=== PATIENT | male | born 1990 | race Two or more races ===

== ENCOUNTER 2024-12-15 07:50 | Day surgery (SDC) | payer MEDICAID, SELFPAY ==
--- NOTE | 2024-12-14 12:24 | EKG_ITS ---
[facility] Test Date: 2024-12-14 Pat Name: ANITHA LEONE Department: Room: - Gender: Male Supervisor Record Press: TAWANA : 1990 Requested By: Landry Womack Order Number: [id number] Reading MD: Landry Womack Measurements Intervals Kelly Rate: 86 P: -1 WA: 139 QRS: 42 QRSD: 93 T: 48 QT: 353 QTc: 423 Interpretive Statements SINUS RHYTHM No previous ECG available for comparison /store/S0/[id number]/[id number]
[2024-12-14 12:29] VITALS: BMI 36.1
[2024-12-14 13:21] LABS: Basophils # (Auto) 0.0 Thou/mm3 (0.0-0.2); Basophils % (Auto) 1 % (0-2.5); Eosinophils # (Auto) 0.1 Thou/mm3 (0.0-0.5); Eosinophils % (Auto) 2 % (0-10); Hematocrit 45.9 % (41.0-53.0); Hemoglobin 14.3 g/dL (13.5-16.0); Immature Granulocytes Auto 0.02 Thou/mm3 (0.00-0.00); Lymphocytes # (Auto) 1.0 Thou/mm3 (1.0-4.8); Lymphocytes % (Auto) 14 % (10-50); Mean Corpuscular HGB Conc 31.2 g/dl (31.0-37.0); Mean Corpuscular Hemoglobin 23.1 pg (25.0-35.0); Mean Corpuscular Volume 74 fL (80-100); Monocytes # (Auto) 0.6 Thou/mm3 (0.0-0.8); Monocytes % (Auto) 8 % (0-12); Neutrophils # (Auto) 5.7 Thou/mm3 (1.8-7.7); Neutrophils % (Auto) 76 % (37-80); Nucleated Red Blood Cell # 0.00 Thou/mm3 (0.00-0.00); Nucleated Red Blood Cell % 0 /100 WBC (0); Platelet Count 335 Thou/mm3 (140-440); RDW Standard Deviation 37.9 fL (35.1-43.9); Red Blood Count 6.20 Miln/mm3 (4.50-5.90); White Blood Count 7.5 Thou/mm3 (3.8-10.6)
[2024-12-14 13:37] LABS: INR 1.0 (0.9-1.3); Partial Thromboplastin Time 27.0 Seconds (22.0-36.0); Prothrombin Time 11.1 Seconds (9.0-12.2)
[2024-12-14 13:47] LABS: Alanine Aminotransferase 37 U/L (10-49); Albumin, Serum 4.7 gm/dL (3.5-5.0); Albumin/Globulin Ratio 1.2 (1.2-2.2); Alkaline Phosphatase 120 U/L (46-116); Anion Gap 13 (7-16); Aspartate Amino Transferase 38 U/L (0-34); BUN/Creatinine Ratio 7 Ratio (12-20); Bilirubin,Total 1.1 mg/dL (0.3-1.2); Blood Urea Nitrogen 5 mg/dL (9-23); Calcium 9.7 mg/dL (8.3-10.6); Calcium (Corrected) 9.7 mg/dL (8.5-10.1); Carbon Dioxide 23.3 mMol/L (20.0-31.0); Chloride 100 mMol/L (98-107); Creatinine (Component) 0.7 mg/dL (0.6-1.3); Estimated Creatinine Clearance 160.5 mL/min (>60); Globulin 4.0 gm/dL (2.3-3.5); Glucose 165 mg/dL (74-106); Osmolality,Calculated 273 (275-295); Potassium 3.8 mMol/L (3.4-5.1); Sodium 136 mMol/L (136-145); Total Protein 8.7 gm/dL (5.7-8.2); eGFR > 60 See Note
--- NOTE | 2024-12-14 14:40 | SUR.PREOP ---
Pt notified to come in at 0830 tomorrow for surgery.
[2024-12-15] VITALS (7 sets, daily range): BP systolic 101–135; BP diastolic 53–90; PULSE 83–110; RESP 15–24; TEMP 36.2–36.4; O2SAT 96–99; BMI 35.8
[2024-12-15] MEDS: RINGERS LACTATED 1000 ML 1,000 ML 20 ML IV (08:33)
--- NOTE | 2024-12-15 08:39 | SUR.PREOP ---
Patient expressed gratitude for prayer before their procedure.
--- NOTE | 2024-12-15 11:04 | ESHP_ITS ---
RE: ANITHA LEONE : 1990 DATE OF ADMISSION: 12/15/2024 Patient was seen by me in my office on 12/14/2024. Patient presents to me with history of pain, swelling, clicking and locking of the left knee joint. This is going on for long period of time. Intensity of pain is 7 to 8 out of 10. Quality of life is affected. Unable to sleep. PAST MEDICAL HISTORY: Patient has history of high blood pressure and diabetes mellitus. No history of asthma, seizure, chest pain, myocardial infarction, bleeding disorder. PAST SURGICAL HISTORY: Nil known. DRUG HISTORY: 1. Ozempic. 2. Valsartan. ALLERGIES: NIL KNOWN. FAMILY HISTORY AND SOCIAL HISTORY: Patient denies smoking drinking, is not working. PHYSICAL EXAMINATION: General: Rather normal built person. Vital Signs: Pulse 88 per minute. Blood pressure 138/84. Neck: Soft, supple. No mass felt. Trachea is centrally placed. Cardiovascular System: First and second heart sound normal. No murmur heard. Respiratory System: Bilateral vesicular breath sounds. Chest clear. Abdomen: Soft. No mass felt. Bowel sounds present. Extremities: Left knee examination reveal mild swelling. There is 1+ tenderness. Range of motion 0 to 115 degrees of flexion. Gretta test is positive. Drawer test, Lyndsey test negative. Neurovascularly, it is intact. MRI scan confirm torn meniscus with synovitis and increased joint fluid and DJD. Since patient is symptomatic, therefore left knee arthroscopy was discussed and advised. Risks with anesthesia includes but not limited to reaction to anesthetic agents, cardiac arrest and rarely it might be fatal. Risks with operation includes infection and if that happens patient may need further surgical procedure. Other risks include delayed healing, wound dehiscence, etc. No guarantee is given regarding outcome of the procedure and/or relief of symptoms. Appropriate lab work is being done. Surgery is booked for 12/15/2024. DT: 10:55:15 TT: 11:03:00 Ref: [id number] - TID: [id number]
--- NOTE | 2024-12-15 11:55 | SUR.PHASEI ---
pt received from OR in recovery bay 1. pt asleep but responds to voice, breathing unlabored on oxymask 8l. v/s stable. pt dressing to left knee cdi. report received from Dr. Gibson and Juan Moctezuma.
--- NOTE | 2024-12-15 11:57 | ESOP_ITS ---
Date of Procedure 12/15/24 Pre Op Diagnosis 1. Torn medial meniscus left knee joint 2 torn lateral meniscus 3 DJD 4 synovitis Post Op Diagnosis Same Procedure 1. Partial medial meniscectomy 2 partial lateral meniscectomy 3. Chondroplasty 4. Partial synovectomy including synovial biopsy Findings Refer dictation Procedure Description The patient was given general endotracheal anesthesia. Once satisfactory anesthesia was achieved, tourniquet was placed on left upper thigh. Following that the part was thoroughly prepped and draped. After using Esmarch the tourniquet pressure was raised to 350 mmHg. A skin incision was made proximal to lateral tibial plateau and arthroscope was introduced in the usual fashion. Another a skin incision was made in suprapatellar pouch area and outlet was established. The fluid coming out from the joint was sent for aerobic anaerobic culture sensitivity and for Gram staining. The findings were noted as below. In suprapatellar pouch area significant synovial tissue inflammation was present. The findings were consistent with old infection or inflammatory conditions. Medial plica was present as well. 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 The anterior femoral condyle showed grade 3 chondromalacia. Soft tissue impingement was present. The patellar tracking was checked and found to be good. The medial compartment showed grade 3/4 chondromalacia for medial tibial plateau and medial femoral condyle. The medial meniscus showed degeneration and tear of the anterior horn. Another skin incision was made proximal to medial tibial plateau and a probe was introduced and findings were confirmed. The anterior cruciate ligament was intact. The anterior drawer test was performed and found to be good. The lateral compartment showed intact lateral femoral condyle and tibial plateau. Lateral meniscus showed degeneration of the body and anterior horn. I t was full of synovitic tissue and joint space was minimal. A shaver was introduced and shaving of the medial meniscus. Soft tissue impingement was shaved off. Chondroplasty of the medial femoral condyle and medial tibial plateau was performed. The shaving of the lateral meniscus was done. The chondroplasty of the patella and and anterior femoral condyle was performed. The soft tissue impingement was shaved off. A partial synovectomy including excision of plica was performed. The incision was extended by half inches and synovitic tissue from the suprapatellar pouch area was excised and sent for histopathological examination. Copious amount of irrigation was used to irrigate the knee joint. All the debris were removed. 3-0 Prolene was used to close the wound. About 20 mL of quarter percent Marcaine along with 10 mg of Duramorph was injected. Patient tolerated procedure well. Estimated blood loss was about 5 mL. Prognosis in this case is rather guarded. Patient has significant central tissue inflammation which appears was due to old possible septic arthritis or some inflammatory process. Patient was taken to the recovery room in good condition. Anesthesia GETA Pathology / specimen None Estimated Blood Loss 1 Surgeon Landry Anguiano MD Surgical Staff Operation Date: 12/15/24 10:30 Case Staff Anesthesiologist: Gavino Gibson
[2024-12-15] MEDS: MORPHINE SULF INJ 4 MG/ML VIAL 3 MG IV (12:15)
--- NOTE | 2024-12-15 12:24 | SUR.PHASEI ---
pt able to tolerate oral fluids without difficulty swallowing or nausea/vomiting.
[2024-12-15] MEDS: fentaNYL CIT INJ 50 mCg/ML AMP 2ML 25 MCG IVP ×2 (12:30→12:46)
--- NOTE | 2024-12-15 13:10 | SUR.PHASEII ---
pt awake and alert, breathing unlabored on room air. v/s stable. pt dressing to left knee cdi. pt able to ambulate to wheelchair with steady gait. d/c instructions given with sister Kay in room, all questions answered. pt d/c via wheelchair with all belongings.
== END 2024-12-15 13:10 | disposition home or self-care (01) ==
PROVIDERS: Anesthesiology; Referring Provider Orthopaedic Surgery; Visit Provider Orthopaedic Surgery
PROC: (CPT 29870; principal; 2024-12-15 10:30)
DX: S83.242A Other tear of medial meniscus, current injury, left knee, initial encounter (principal); S83.289A Other tear of lateral meniscus, current injury, unspecified knee, initial encounter; M26.81 Anterior soft tissue impingement; Z01.810 Encounter for preprocedural cardiovascular examination; M65.862 Other synovitis and tenosynovitis, left lower leg; X58.XXXA Exposure to other specified factors, initial encounter; M17.12 Unilateral primary osteoarthritis, left knee; M22.42 Chondromalacia patellae, left knee; M67.52 Plica syndrome, left knee
CPT/HCPCS: 29880; 36415; 80053; 85025; 85610; 85730; 87070; 87075; 87205; 93005; A4217; A4649; J2270; J3010; J7120

== ENCOUNTER 2025-02-14 14:00 | Outpatient (RCR) | payer MEDICAID, SELFPAY ==
--- NOTE | 2025-01-30 09:41 | PT.OIERPT ---
PT OP Initial Eval Patient Information Outpatient Physical Therapy Treatment Date: 01/30/25 Visit Reasons: left knee surgery Medical Diagnosis: Z98.890 Treatment Dx #1: L knee pain Treatment Dx #2: Dec L knee ROM Start of Care: 01/30/25 Date of Onset: 12/15/24 DOS Smoking Status Smoking Status: Never smoker Initial Assessment Subjective: Pt is 34 yr old male s/p L knee A/S reports difficulty bending and straightening the knee and it hurts sometimes to walk. He walks for about 20-30 minutes on the treadmill. Increased pain with stairs and squatting. PMH: DM Pt goal: to get the knee back to normal to exercise and jog again Objective: L knee AROM: ? Flexion: 79 deg ? Extension: -26 deg ? PROM: 85 deg flexion with pain and guarding ? SLR: 75 deg with slight extensor lag ? Strength: L quads 3+/5 limited by pain, hamstrings 4/5 ? Antalgic gait pattern with decreased stance time on L Assessment: Pt presentation consistent with post op L knee A/S with very limited ROM, ? strength and WB tolerance. Pt ambulates with antalgia on L. Pt has ? pain and high guarding into knee flexion that limits end-range ? tolerance and PROM. Pt requires skilled therapy and has fair rehab potential. Pt may benefit from static progressive ROM device such as dynasplint. Eval followed by HEP printout. Short Term and Halfway Goals 1. Independent with HEP ? 2. Improved knee flexion ROM to 110 deg and extension to full ? 3. Improved quad and hamstring strength to 4/5 ? 4. Improved ambulatory tolerance to community distances with symmetrical ? gait pattern. Treatment Plan 1. Manual therapy ? 2. Therex ? 3. Modalities as indicated, moist heat, ice, TENS Frequency and Duration: 2x a week for 16 visits plus the evaluation Certification Dates: 01/30/25 to 04/30/24 Procedure Charges OP PT Eval Mod Complex 30 minutes: Yes
--- NOTE | 2025-02-06 14:56 | PT.ODAYNRPT ---
PT Outpatient Daily Note OP Daily Note Outpatient Physical Therapy Treatment Date: 02/06/25 Visit Reasons: left knee surgery Subjective: Doing HEP with pain that limits ROM into extension Objective: See f/S for therex Assessment: The L knee is edemic and limited into extension Plan: Continue per POC Length of Time (minutes) of Treatment: 30 Minutes Procedure Charges Therapeutic Exercise 30 minutes: Yes
--- NOTE | 2025-02-08 13:53 | PT.ODAYNRPT ---
PT Outpatient Daily Note OP Daily Note Outpatient Physical Therapy Treatment Date: 02/08/25 Visit Reasons: left knee surgery Subjective: Doing HEP with pain that limits ROM into extension Objective: See f/S for therex MT: PROM into extension x5' low overpressure Assessment: The L knee is edemic and limited into extension by pt guarding and tightness Plan: Continue per POC Length of Time (minutes) of Treatment: 30 Minutes Procedure Charges Therapeutic Exercise 30 minutes: Yes
--- NOTE | 2025-02-14 14:48 | PT.ODAYNRPT ---
PT Outpatient Daily Note OP Daily Note Outpatient Physical Therapy Treatment Date: 02/14/25 Visit Reasons: left knee surgery Subjective: Pt c/o painful and stiff knee today. Objective: Please see flow sheet for ther ex list. Assessment: Continue with focus on restoring ROM within pt tolerance. Plan: Continue with poC. Length of Time (minutes) of Treatment: 30 Minutes Procedure Charges Therapeutic Exercise 30 minutes: Yes
== END 2025-02-28 23:59 | disposition home or self-care (01) ==
LOC: CPTX 14:00
PROVIDERS: PCP Orthopaedic Surgery; Referring Provider Orthopaedic Surgery; Visit Provider Orthopaedic Surgery
DX: M25.562 Pain in left knee (principal); E11.9 Type 2 diabetes mellitus without complications; Z98.890 Other specified postprocedural states
CPT/HCPCS: 97110; 97162